=== PATIENT | male | born 1950 | race Caucasian/White ===

== ENCOUNTER → 2016-06-15 | Outpatient (CLI) | payer BC ==
--- NOTE | 2016-06-15 08:36 | XR ---
EXAMINATION TYPE: XR abdomen 1V DATE OF EXAM: 06/15/2016 8:19 AM COMPARISON: 07/22/2015 INDICATION: Urethral calculus TECHNIQUE: Single view abdomen supine view FINDINGS: There is a normal bowel gas pattern. Psoas margins are normal. No organomegaly is present. Previous distal right ureteral calculus is not identified on the current examination. IMPRESSION: 1. Unremarkable Abdomen
== END | disposition home or self-care (01) ==
LOC: RADXRMAIN 07:58
PROVIDERS: ATTEND Urology
DX: N20.1 Calculus of ureter (principal)
CPT/HCPCS: 74000

== ENCOUNTER 2016-07-12 07:04 | Day surgery (SDC) | payer BC ==
[2016-07-08 14:21] VITALS: BMI 29.7
[~2016-07-12 07:04] MED LIST: LACTATED RINGERS 1,000 ML IV SCH; LIDOCAINE 1% 20 ML VIAL (10MG/ML) FOR IV START INTRADERMA PRN
[2016-07-12 07:25] VITALS: TEMP 97.8
[2016-07-12] MEDS ORDERED: PROPOFOL 10 MG/ML 20 ML VIAL IV ONE (08:31)
[2016-07-12] MEDS ORDERED: LIDOCAINE 1% INJ 10MG/ML (20 ML MDV) ONE (08:31)
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
--- NOTE | 2016-07-12 09:10 | P.OP ---
Date of Procedure: 07/12/16 Preoperative Diagnosis: GERD GI bleed Postoperative Diagnosis: Antral gastritis Large hiatal hernia Esophagitis Diverticulosis External and internal hemorrhoids Colonic polyps of right colon and hepatic flexure Procedure(s) Performed: EGD Colonoscopy Anesthesia: MAC Surgeon: Renard Buchanan Pathology: other (Antrum, esophagus, colon polyps) Condition: stable Disposition: PACU Description of Procedure: The patient was placed on the endoscopy table in the lateral position. He received IV sedation. The gastroscope was then placed oropharynx and passed into the esophagus and into the stomach. Scope was then placed through the pylorus. The first and second portion of the duodenum appeared normal. The worst and second portion of the duodenum appeared normal. The scope was then brought back the antrum and this was mildly inflamed a biopsies was performed. The scope was then retroflexed and the remainder of the stomach appeared normal. The patient had a large hiatal hernia. The GE junction was at 37 cm. The distal esophagus showed evidence of a closely erosions and a biopsy was performed. The proximal esophagus appeared normal. The scope was then withdrawn for patient. Next digital rectal exam was performed which revealed external and internal hemorrhoids. The prostate was symmetric without nodules. The flexible colonoscope was then placed patient anus and passed throughout the entire colon. The ileocecal valve was visualized. The cecum appeared normal. In the right colon there was a polyp seen this removed with snare. At the hepatic flexure another polyp seen this removed with snare and forcep. Scope was then withdrawn and the transverse colon appeared normal. In the descending sigmoid colon there were scattered diverticuli. Scope was then brought back the rectum and this appeared normal. Scope was withdrawn for patient.
[2016-07-12 09:24] VITALS: BP 132/92; PULSE 69; RESP 18
== END 2016-07-12 09:56 | disposition home or self-care (01) ==
LOC: ORWHC2ENDO 07:04
PROVIDERS: ATTEND Surgery
DX: K29.50 Unspecified chronic gastritis without bleeding (principal); K20.0 Eosinophilic esophagitis; K44.9 Diaphragmatic hernia without obstruction or gangrene; D12.2 Benign neoplasm of ascending colon; D12.3 Benign neoplasm of transverse colon; K57.30 Diverticulosis of large intestine without perforation or abscess without bleeding; K64.4 Residual hemorrhoidal skin tags; K64.8 Other hemorrhoids; Z87.19 Personal history of other diseases of the digestive system; Z87.891 Personal history of nicotine dependence; E78.5 Hyperlipidemia, unspecified; I10 Essential (primary) hypertension; N40.0 Benign prostatic hyperplasia without lower urinary tract symptoms; Z87.442 Personal history of urinary calculi; Z79.899 Other long term (current) drug therapy
CPT/HCPCS: 88305; 88342; 45385; 43239; J2001; J2704

== ENCOUNTER 2016-07-19 06:08 | Inpatient (IN) | payer BC ==
[2016-07-16 08:27] VITALS: BMI 29.8
[~2016-07-19 06:08] MED LIST changes: +DEXAMETHASONE SOD PHOSPHATE 10 MG/ML 1 ML VIAL IV ONE; +HEPARIN SODIUM,PORCINE 5,000 UNIT/ML 1 ML VIAL SQ ONE; +HYDROmorphone 1 MG/ML 1 ML SYRINGE IVP PRN; -LACTATED RINGERS 1,000 ML IV SCH; -LIDOCAINE 1% 20 ML VIAL (10MG/ML) FOR IV START INTRADERMA PRN; +MIDAZOLAM 2 MG/2 ML VIAL IV PRN; +ONDANSETRON 4 MG/2 ML VIAL IVP ONE; +SCOPOLAMINE 1.5MG/72HR PATCH TRANSDERM ONE; +ceFAZolin 2 GM in SODIUM CHLORIDE 0.9% 100 ML IVPB ONE
[2016-07-19] MEDS ORDERED: LIDOCAINE 1% 20 ML VIAL (10MG/ML) FOR IV START INTRADERMA ONE (07:06)
[2016-07-19] MEDS: LACTATED RINGERS 1,000 ML IV SCH (07:07)
[2016-07-19] MEDS ORDERED: BUPIVACAIN-EPI 0.25%-1:200,000 30 ML VIAL SQ ONE ×5 (07:23→08:48)
--- NOTE | 2016-07-19 07:47 | P.GSHP ---
History of Present Illness H&P Date: 07/19/16 Chief Complaint: GERD The cystic 6-year-old male referred from Dr. Hodges.The patient has had long- standing problems with reflux esophagitis. The patient underwent recent EGD is found have evidence of esophagitis. Patient has been well informed on the procedure of laparoscopic Brittney fundoplication. The patient is aware the risk of the conversion to the open procedure, risk of injury to the stomach, liver and spleen. The patient is also a risk of recurrent GERD and dysphagia symptoms. The patient understands there is a postoperative diet of full liquids for 2 weeks after surgery. - Constitutional Constitutional: Reports as per HPI Past Medical History Past Medical History: GERD/Reflux, Hyperlipidemia, Hypertension, Prostate Disorder Additional Past Medical History / Comment(s): Hx INT HEMORRHOID. KIDNEY STONES, History of Any Multi-Drug Resistant Organisms: None Reported Past Surgical History: Cholecystectomy, Ear Surgery, Orthopedic Surgery Additional Past Surgical History / Comment(s): Lithotripsy 06-16-15. Splenectomy at age 12. ORIF OF RIGHT ANKLE/FIBULA-hardware out (3 SURGERIES). RT EAR SURG , HAD IMPLANT DONE 06/16/16. COLONOSCOPY. Past Anesthesia/Blood Transfusion Reactions: Motion Sickness, Postoperative Nausea & Vomiting (PONV) Past Psychological History: No Psychological Hx Reported Smoking Status: Former smoker Past Alcohol Use History: Rare Additional Past Alcohol Use History / Comment(s): QUIT IN 1981, SMOKED FOR 7 YRS. Past Drug Use History: None Reported - Past Family History Mother Family Medical History: Dementia Father Family Medical History: Cancer Additional Family Medical History / Comment(s): colon ca Medications and Allergies Home Medications Medication Instructions Recorded Confirmed Type Losartan [Cozaar] 50 mg PO QAM 10/05/14 07/19/16 History Simvastatin [Zocor] 40 mg PO QAM 10/05/14 07/19/16 History Tamsulosin [Flomax] 0.4 mg PO DAILY 07/01/15 07/19/16 History Tadalafil [Cialis] 5 mg PO ONCE PRN 07/08/16 07/19/16 History Allergies Allergy/AdvReac Type Severity Reaction Status Date / Time No Known Allergies Allergy Verified 07/12/16 07:14 Surgical - Exam Vital Signs Temp Pulse Resp BP Pulse Ox 97.5 F L 74 16 155/93 97 07/19/16 06:52 07/19/16 06:52 07/19/16 06:52 07/19/16 06:52 07/19/16 06:52 - General well developed, no distress - Eyes PERRL - ENT normal pinna - Neck no masses - Respiratory normal expansion - Cardiovascular Rhythm: regular - Abdomen Abdomen: soft, non tender Assessment and Plan Plan: GERD. We'll perform laparoscopic Brittney fundal plication.
[2016-07-19] MEDS ORDERED: KETOROLAC 30 MG/ML 1 ML VIAL ONE (07:55)
[2016-07-19] MEDS ORDERED: HYDROmorphone (PF) 1 MG/ML ONE (07:55)
[2016-07-19] MEDS ORDERED: SUCCINYLCHOLINE CHLORIDE 100 MG/5 ML SYR IV ONE (07:55)
[2016-07-19] MEDS ORDERED: ROCURONIUM BROMIDE 10 MG/ML 10 ML VIAL IV ONE (07:55)
[2016-07-19] MEDS ORDERED: GLYCOPYRROLATE 0.2 MG/ML 2 ML VIAL ONE (07:55)
[2016-07-19] MEDS ORDERED: ONDANSETRON 4 MG/2 ML VIAL ONE (07:55)
[2016-07-19] MEDS ORDERED: MIDAZOLAM 2 MG/2 ML VIAL ONE (07:55)
[2016-07-19] MEDS ORDERED: LIDOCAINE 1% INJ 10MG/ML (20 ML MDV) ONE (07:55)
[2016-07-19] MEDS ORDERED: PROPOFOL 10 MG/ML 20 ML VIAL IV ONE (07:55)
[2016-07-19] MEDS ORDERED: PHENYLEPHRINE-0.9% NACL SYG 1 MG/10 ML SYRINGE ONE (07:55)
[2016-07-19] MEDS ORDERED: fentaNYL (PF) 50 MCG/ML 2 ML AMP ONE (07:55)
[2016-07-19] MEDS ORDERED: NEOSTIGMINE 1 MG/ML 10 ML VIAL ONE (07:55)
[2016-07-19] MEDS ORDERED: LACTATED RINGERS 1,000 ML IV ONE ×4 (09:49→10:15)
[2016-07-19] MEDS ORDERED: ONDANSETRON 4 MG/2 ML VIAL IVP PRN (10:15)
[2016-07-19] MEDS ORDERED: HYDROmorphone 1 MG/ML 1 ML SYRINGE IVP PRN (10:15)
[2016-07-19] MEDS ORDERED: NALOXONE 0.4 MG/ML 1 ML VIAL IV PRN (10:15)
[2016-07-19] MEDS ORDERED: ACETAMINOPHEN TAB 325 MG TAB PO PRN (10:15)
[2016-07-19] MEDS ORDERED: HYDROcodone/APAP 5-325MG 1 EACH TAB PO PRN (10:15)
--- NOTE | 2016-07-19 10:15 | P.OP ---
Date of Procedure: 07/19/16 Preoperative Diagnosis: GERD Postoperative Diagnosis: GERD Adhesions Procedure(s) Performed: Laparoscopic Brittney fundoplication with mesh repair of hiatal hernia Laparoscopic lysis of adhesions Anesthesia: MAC Surgeon: Renard Buchanan Estimated Blood Loss (ml): 50 Pathology: none sent Condition: stable Disposition: PACU Description of Procedure: The patient's placed on the operative table in the supine position. He received general anesthesia. He was then placed in dorsal lithotomy position. His abdomen was prepped and draped in usual sterile fashion. The patient had a previous upper midline incision with a lateral extension. Using a 5 mm blade was trocar under direct visualization panel cavity was entered in the right lateral position. The laparoscope placed back internal cavity after adequate insufflation then the adhesions were noted along the midline. This point a another fibrillar trochars placed in the right upper quadrant and another 5 mm trocar was placed in the right lower quadrant. Approximately 30 minutes of operative time used to lyse adhesions on the midline. Once the adhesions were lysed. A fibrillar trocar is placed in the right epigastric, left epigastric and left umbilical area and then another fibrillar trocar was placed in the left lateral position. The left lateral lobe of the liver was retracted. And the hiatus was visualized. There was an obvious hiatal hernia. The patient had a previous splenectomy and there were adhesions along the greater curvature of the stomach. Using the Harmonic scissors to greater curvature stomach was dissected. Care was taken to identify and preserve the gastric wall. The hiatus was then dissected using the Harmonic scissors a 363 dissection of the hiatus was performed. The hiatal defect was then closed using 2-0 Ethibond. The repair was then buttressed with [employer] a mesh. This was held in with 2-0 Ethibond suture. The 58-Ugand[place] bougie dilators then placed patient oropharynx and passed in the stomach by the ADVISORY SOFTWARE ENGINEER. The fundoplication wrap was then performed. A 3 or 60 wrap was performed and secured with 2-0 Ethibond suture. At this point the abdomen was irrigated. There is no bleeding seen. The trochars and liver retractor withdrawn. The skin was closed interrupted 3-0 Monocryl suture. Dermabond dressings was applied. Patient was sent to recovery in stable condition.
[2016-07-19] MEDS: KETOROLAC 30 MG/ML 1 ML VIAL IVP SCH ×3 (12:31→23:13)
--- NOTE | 2016-07-19 14:24 | FL ---
EXAMINATION TYPE: FL UGI w esophagus DATE OF EXAM: 07/19/2016 1:35 PM COMPARISON: NONE HISTORY: Status post Brittney fundoplication Patient was given 50 cc of Omnipaque 350 by mouth. 1 minute 6 seconds fluoroscopy time. 5 images docu ment the procedure. At the level of the gastroesophageal junction, there is fundoplication change. There is narrowing of the contrast column. Moderate obstruction is seen. No extravasation. Tertiary esophageal contractions with reflux from the distal esophagus into the thoracic esophagus was noted during the exam. IMPRESSION: There is a moderate obstruction postoperatively as described. Entire contrast column does not clear into the stomach. Additional findings above.
[2016-07-19] MEDS: FAMOTIDINE 20 MG TAB PO SCH (21:22)
[2016-07-19] MEDS: DOCUSATE 100 MG CAP PO SCH (21:22)
[2016-07-20] MEDS: LACTATED RINGERS 1,000 ML IV SCH (04:55)
[2016-07-20] MEDS: KETOROLAC 30 MG/ML 1 ML VIAL IVP SCH ×2 (05:43→12:06)
[2016-07-20 07:38] VITALS: BP 125/70; PULSE 77; RESP 19; TEMP 97.3
[2016-07-20] MEDS: DOCUSATE 100 MG CAP PO SCH ×2 (07:55→08:24)
[2016-07-20] MEDS: FAMOTIDINE 20 MG TAB PO SCH (08:23)
[2016-07-20] MEDS ORDERED: TAMSULOSIN 0.4 MG CAP.ER.24H PO SCH (09:00)
[2016-07-20] MEDS ORDERED: LOSARTAN 50 MG TAB PO SCH (09:00)
[2016-07-20] MEDS ORDERED: ENOXAPARIN 40 MG/0.4 ML SYRINGE SQ SCH (09:00)
[2016-07-20] MEDS ORDERED: ATORVASTATIN 20 MG TAB PO SCH (09:00)
[2016-07-20 09:33] LABS: Basophils % (A) 0 %; CH 31.7; CHCM 33.5; Eosinophils # (A) 0.1 k/uL (0-0.7); Eosinophils % (A) 1 %; HCT 43.8 % (39.0-53.0); HDW 2.35; HGB 14.3 gm/dL (13.0-17.5); Luc # (Auto) 0.22; Luc % (Auto) 2; Lymphocytes # (A) 1.5 k/uL (1.0-4.8); Lymphocytes % (A) 14 %; MCH 31.1 pg (25.0-35.0); MCHC 32.7 g/dL (31.0-37.0); MCV 95.2 fL (80.0-100.0); Mean Platelet Volume 7.1; Monocytes # (A) 0.9 k/uL (0-1.0); Monocytes % (A) 9 %; Neutrophils # (A) 8.1 k/uL (1.3-7.7); Neutrophils % (A) 74 %; RDW 13.1 % (11.5-15.5); WBC 10.8 k/uL (3.8-10.6); WBC (Perox) 11.32
--- NOTE | 2016-07-20 11:28 | P.DS ---
Providers Date of admission: 07/19/16 06:08 Expected date of discharge: 07/20/16 Attending physician: Renard Buchanan Consults: 07/19/16 10:15 Consult Physician Routine Consulting Provider: Peter Hodges Reason/Comments: Medical management Do you want consulting provider notified?: Yes Primary care physician: Peter Hodges [facility] Course: Patient is a 66-year-old male, patient of Dr. Peter Hodges in the outpatient setting, with medical history significant for reflux esophagitis not responding to conservative treatment. Patient presented to the hospital for elective laparoscopic Brittney fundoplication. Patient underwent laparoscopic Brittney fundoplication with mesh repair of hiatal hernia and laparoscopic lysis of adhesions. Patient tolerated procedure well. Upper GI/barium swallow x-ray post Lucho fundoplication with moderate obstruction. No evidence of leak. No evidence of dysphagia, nausea, vomiting. Patient tolerating a clear liquid diet. Patient was deemed stable for discharge to home with close follow-up in the outpatient setting. Discharge diagnoses: GERD status post laparoscopic Brittney fundoplication. Adhesions status post laparoscopic lysis of adhesions. The above impression and plan have been discussed and directed by Dr. Buchanan. Enrique GONG acting as scribe for Dr. Buchanan. Pertinent Studies: Upper GI/barium swallow x-ray Procedures: Laparoscopic Brittney fundoplication with mesh repair of hiatal hernia; Laparoscopic lysis of adhesions Patient Condition at Discharge: Good Plan - Discharge Summary New Discharge Prescriptions: Docusate [Colace] 100 mg PO BID #20 capsule HYDROcodone/APAP 7.5-325MG [[place] 7.5-325] 1 tab PO Q6HR PRN #28 tab PRN Reason: Pain Discharge Medication List Losartan [Cozaar] 50 mg PO QAM 10/05/14 [History] Simvastatin [Zocor] 40 mg PO QAM 10/05/14 [History] Tamsulosin [Flomax] 0.4 mg PO DAILY 07/01/15 [History] Tadalafil [Cialis] 5 mg PO ONCE PRN 07/08/16 [History] Docusate [Colace] 100 mg PO BID #20 capsule 07/19/16 [Rx] HYDROcodone/APAP 7.5-325MG [[place] 7.5-325] 1 tab PO Q6HR PRN #28 tab 07/19/16 [ Rx] Follow up Appointment(s)/Referral(s): Peter Hodges DO [Primary Care Provider] - 07/27/16 11:30 am Renard Buchanan MD [STAFF PHYSICIAN] - 08/03/16 2:40 pm Patient Instructions/Handouts: *Surgery [facility] - ([facility]) Lap Brittney Fundiplication Post-Op Instructions Activity/Diet/Wound Care/Special Instructions: No heavy lifting, pushing, or pulling items greater than 10 pounds. Full liquid diet for 2 weeks. No caffeinated beverages or straws. Shower daily, no soaking in bath tubs, pools, or hot tubs. No driving while taking pain medication. Notify surgeon with any signs or symptoms of infection, increased pain, or not tolerating diet. Discharge Disposition: HOME SELF-CARE
--- NOTE | 2016-07-20 13:05 | P.CONS ---
History of Present Illness - Reason for Consult Consult date: 07/19/16 medical management Requesting physician: Renard Buchanan - Chief Complaint GERD - History of Present Illness patient is 66-year-old male, patient of Dr.Gary Hodges in the outpatient setting, with medical history significant for severe reflux esophagitis not responding to medical management; hyperlipidemia, and hypertension. Patient presented to the hospital for elective laparoscopic Brittney fundoplication by Dr. Buchanan on 07/19/2016. Patient tolerated procedure well. Upon exam, patient is postop day #1. Patient is doing well. Denies dysphagia, chills, fevers, nausea, vomiting, shortness of breath, chest pain, leg swelling or leg pain. Patient is tolerating a clear liquid diet. Patient has been up ambulating. Patient is urinating without difficulty. Patient is passing flatus without bowel movement. Incisional pain controlled. Afebrile. Hemodynamically stable. Past Medical History Past Medical History: GERD/Reflux, Hyperlipidemia, Hypertension, Prostate Disorder Additional Past Medical History / Comment(s): Hx INT HEMORRHOID. KIDNEY STONES, History of Any Multi-Drug Resistant Organisms: None Reported Past Surgical History: Cholecystectomy, Ear Surgery, Orthopedic Surgery Additional Past Surgical History / Comment(s): Lithotripsy 06-16-15. Splenectomy at age 12. ORIF OF RIGHT ANKLE/FIBULA-hardware out (3 SURGERIES). RT EAR SURG , HAD IMPLANT DONE 06/16/16. COLONOSCOPY. Past Anesthesia/Blood Transfusion Reactions: Motion Sickness, Postoperative Nausea & Vomiting (PONV) Past Psychological History: No Psychological Hx Reported Smoking Status: Former smoker Past Alcohol Use History: Rare Additional Past Alcohol Use History / Comment(s): QUIT IN 1981, SMOKED FOR 7 YRS. Past Drug Use History: None Reported - Past Family History Mother Family Medical History: Dementia Father Family Medical History: Cancer Additional Family Medical History / Comment(s): colon ca Medications and Allergies Home Medications Medication Instructions Recorded Confirmed Type Losartan [Cozaar] 50 mg PO QAM 10/05/14 07/19/16 History Simvastatin [Zocor] 40 mg PO QAM 10/05/14 07/19/16 History Tamsulosin [Flomax] 0.4 mg PO DAILY 07/01/15 07/19/16 History Tadalafil [Cialis] 5 mg PO ONCE PRN 07/08/16 07/19/16 History Allergies Allergy/AdvReac Type Severity Reaction Status Date / Time No Known Allergies Allergy Verified 07/12/16 07:14 Physical Exam Vitals: Vital Signs Temp Pulse Resp BP Pulse Ox 07/20/16 07:00 97.3 F L 77 19 125/70 93 L 07/19/16 22:41 97.5 F L 79 16 139/88 94 L 07/19/16 14:47 96.6 F L 72 18 139/94 92 L Intake and Output 07/19/16 07/20/16 07/20/16 22:59 06:59 14:59 Other: # Voids 2 2 GENERAL: Pt awake and alert, well-appearing, well-nourished, and in no acute distress. HEAD: Atraumatic, normocephalic. EYES: Pupils equal, round, and reactive to light, extraocular movements intact, sclera anicteric, conjunctiva are normal. ENT: Moist mucous membranes. Tongue smooth, pink, no lesions, protrudes in midline. NECK:Supple without lymphadenopathy or JVD. LUNGS: Breath sounds clear to auscultation bilaterally. No wheezes, rales, or rhonchi. HEART: Heart S1, S2, no S3 or S4. Regular rate and rhythm.No murmurs, rubs or gallops. ABDOMEN: Soft, nontender, nondistended, normoactive bowel sounds. No guarding, no rebound. No masses or organomegaly appreciated. Incisions dry and intact. EXTREMITIES: 2+ peripheral pulses. No edema. No calf tenderness. NEUROLOGICAL: Pt oriented x 3. No focal deficits noted. Strength and sensation grossly intact. PSYCH: Normal mood, normal affect. SKIN: Warm, dry. Results CBC & Chem 7: 07/20/16 08:45 Labs: Abnormal Lab Results - Last 24 Hours (Table) 07/20/16 Range/Units 08:45 WBC 10.8 H (3.8-10.6) k/uL Neutrophils # 8.1 H (1.3-7.7) k/uL Assessment and Plan Plan: Impression: 1. GERD status post laparoscopic Lucho fundoplication on 07/19/2016. 2. Adhesions status post laparoscopic lysis of adhesions on 07/19/2016. 3. Hyperlipidemia. 4. Hypertension. 5. History of BPH. 6. History of nicotine dependence. Plan: Continue surgical management by surgical service. Home medications and been reviewed and resumed. From a medical standpoint, patient is stable for discharge when cleared by surgery. Patient will follow-up with Dr. Hodges in a week after discharge. The above impression and plan have been discussed and directed by Dr. Hodges. Enrique GONG acting as scribe for Dr. Hodges.
== END 2016-07-20 14:52 | disposition home or self-care (01) | DRG 328 ==
LOC: 2ORWHC 06:08 → 4MS4W 10:14
PROVIDERS: ADMIT Surgery; ATTEND Surgery
PROC: 0BUR4JZ (ICD-10-PCS; 2016-07-19)
PROC: 0BUS4JZ (ICD-10-PCS; 2016-07-19)
PROC: 0DV44ZZ Restriction of Esophagogastric Junction, Percutaneous Endoscopic Approach (ICD-10-PCS; principal; 2016-07-19 07:40)
DX: K21.0 Gastro-esophageal reflux disease with esophagitis (principal); I10 Essential (primary) hypertension; E78.5 Hyperlipidemia, unspecified; K44.9 Diaphragmatic hernia without obstruction or gangrene; N40.0 Benign prostatic hyperplasia without lower urinary tract symptoms; Z79.899 Other long term (current) drug therapy; Z87.891 Personal history of nicotine dependence
CPT/HCPCS: 74240; 85025

== ENCOUNTER → 2018-08-28 | Outpatient (CLI) | payer BC ==
--- NOTE | 2018-08-28 16:34 | US ---
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 Assess left supraclavicular palpable which patient has had x many yea rs. Left lateral inferior neck scanned: subtle oval hypoechoic solid mass noted at palpable = 4.3 x 3.0 x 1.4cm. Technologist identifies slightly lobulated slightly hypoechoic oval lesion at site of palpable abnorm ality not normal or abnormal appearing lymph node. This can BE further evaluated and characterized wi contrast-enhanced CT or MRI if desired. IMPRESSION: As above.
== END | disposition home or self-care (01) ==
LOC: RADUSWWP 15:20
PROVIDERS: ATTEND Surgery
DX: D17.1 Benign lipomatous neoplasm of skin and subcutaneous tissue of trunk (principal)
CPT/HCPCS: 76536

== ENCOUNTER → 2019-08-28 | Outpatient (CLI) | payer BC ==
[2019-08-28 11:53] LABS: HCT 47.9 % (39.0-53.0); HGB 16.3 gm/dL (13.0-17.5); MCH 32.5 pg (25.0-35.0); MCV 95.7 fL (80.0-100.0); Mean Platelet Volume 7.9; Platelet Count 242 k/uL (150-450); RBC 5.01 m/uL (4.30-5.90); RDW 13.1 % (11.5-15.5)
== END | disposition home or self-care (01) ==
LOC: LABWHC1 10:03
PROVIDERS: ATTEND Surgery
DX: K40.20 Bilateral inguinal hernia, without obstruction or gangrene, not specified as recurrent (principal)
CPT/HCPCS: 36415; 85027

== ENCOUNTER 2019-09-19 07:10 | Day surgery (SDC) | payer BC ==
[2019-09-13 12:03] VITALS: BMI 29.0
[~2019-09-19 07:10] MED LIST changes: +ACETAMINOPHEN TAB 500 MG TAB PO ONE; +HYDROmorphone 0.5 MG/0.5 ML SYRINGE IVP PRN; -HYDROmorphone 1 MG/ML 1 ML SYRINGE IVP PRN; +LACTATED RINGERS 1,000 ML IV SCH; +LIDOCAINE 1% (10MG/ML) FOR IV START INTRADERMA PRN; -SCOPOLAMINE 1.5MG/72HR PATCH TRANSDERM ONE; -ceFAZolin 2 GM in SODIUM CHLORIDE 0.9% 100 ML IVPB ONE; +fentaNYL (PF) 50 MCG/ML 2 ML AMP IVP PRN
[2019-09-19] MEDS ORDERED: LACTATED RINGERS 1,000 ML IV ONE (07:51)
[2019-09-19] MEDS ORDERED: HEPARIN SODIUM,PORCINE 5,000 UNIT/ML 1 ML VIAL ONE (07:53)
[2019-09-19] MEDS ORDERED: ACETAMINOPHEN TAB 500 MG TAB ONE (07:53)
[2019-09-19] MEDS ORDERED: ONDANSETRON 4 MG/2 ML VIAL ONE (07:53)
[2019-09-19] MEDS ORDERED: ONDANSETRON 4 MG/2 ML VIAL IVP ONE (07:56)
[2019-09-19] MEDS ORDERED: LIDOCAINE 1% (10MG/ML) FOR IV START INTRADERMA ONE (07:57)
[2019-09-19] MEDS ORDERED: PROPOFOL 10 MG/ML 20 ML VIAL IV ONE (09:43)
[2019-09-19] MEDS ORDERED: ROCURONIUM BROMIDE 10 MG/ML 5 ML VIAL IV ONE (09:43)
[2019-09-19] MEDS ORDERED: ePHEDrine SULFATE/0.9% NACL/PF 50 MG/5 ML SYRINGE IV ONE (09:43)
[2019-09-19] MEDS ORDERED: MIDAZOLAM 2 MG/2 ML VIAL ONE (09:43)
[2019-09-19] MEDS ORDERED: KETOROLAC 30 MG/ML 1 ML VIAL ONE (09:43)
[2019-09-19] MEDS ORDERED: NEOSTIGMINE 1 MG/ML 10 ML VIAL ONE (09:43)
[2019-09-19] MEDS ORDERED: SUCCINYLCHOLINE CHLORIDE 100 MG/5 ML SYR IV ONE (09:43)
[2019-09-19] MEDS ORDERED: fentaNYL (PF) 50 MCG/ML 2 ML AMP ONE (09:43)
[2019-09-19] MEDS ORDERED: GLYCOPYRROLATE 0.2 MG/ML 2 ML VIAL ONE (09:43)
[2019-09-19] MEDS ORDERED: LIDOCAINE 1% INJ 10MG/ML (20 ML MDV) ONE (09:43)
--- NOTE | 2019-09-19 09:43 | P.GSHP ---
History of Present Illness H&P Date: 09/19/19 Chief Complaint: Bilateral inguinal hernias This a 69-year-old male who presents today for laparoscopic robotic-assisted repair of. Bilateral hernias. Past Medical History Past Medical History: Hyperlipidemia, Hypertension Additional Past Medical History / Comment(s): nivia inguinal hernia, Hx INT HEMORRHOID. KIDNEY STONES, History of Any Multi-Drug Resistant Organisms: None Reported Past Surgical History: Cholecystectomy, Ear Surgery, Orthopedic Surgery Additional Past Surgical History / Comment(s): hiatal hernia repair, Lithotripsy 06-16-15. Splenectomy at age 12. ORIF OF RIGHT ANKLE/FIBULA-hardware out (3 SURGERIES). RT EAR SURG, HAD IMPLANT DONE 06/16/16. COLONOSCOPY. Past Anesthesia/Blood Transfusion Reactions: Motion Sickness, Postoperative Nausea & Vomiting (PONV) Smoking Status: Former smoker - Past Family History Mother Family Medical History: Dementia Father Family Medical History: Cancer Additional Family Medical History / Comment(s): colon ca Medications and Allergies Home Medications Medication Instructions Recorded Confirmed Type Losartan [Cozaar] 50 mg PO QAM 10/05/14 09/13/19 History Simvastatin [Zocor] 40 mg PO QAM 10/05/14 09/13/19 History Tamsulosin [Flomax] 0.4 mg PO DAILY 07/01/15 09/13/19 History Allergies Allergy/AdvReac Type Severity Reaction Status Date / Time No Known Allergies Allergy Verified 09/19/19 07:35 Surgical - Exam Vital Signs Temp Pulse Resp BP Pulse Ox 96.3 F L 75 16 129/86 93 L 09/19/19 07:47 09/19/19 07:47 09/19/19 07:47 09/19/19 07:47 09/19/19 07:47 - General well developed, well nourished, no distress - Eyes PERRL - ENT normal pinna - Neck no masses - Respiratory normal expansion - Cardiovascular Rhythm: regular - Abdomen Abdomen: soft, non tender Hernia: inguinal (Bilateral inguinal hernia) Assessment and Plan Assessment: Bilateral hernia. We'll perform laparoscopic robotic system repair.
[2019-09-19] MEDS ORDERED: HYDROcodone/APAP 5-325MG 1 EACH TAB ONE (12:31)
--- NOTE | 2019-09-19 12:43 | P.OP ---
Date of Procedure: 09/19/19 Preoperative Diagnosis: Bilateral inguinal hernia Postoperative Diagnosis: Bilateral inguinal hernia Procedure(s) Performed: Laparoscopic robotic-assisted repair of bilateral inguinal hernia Excision of bilateral cord lipoma Anesthesia: MATT Surgeon: Renard Buchanan Estimated Blood Loss (ml): 5 Pathology: other (Cord lipoma) Condition: stable Disposition: PACU Description of Procedure: RobThe patient's placed on the operating table in the supine position. The patient received general anesthesia. The patient's abdomen was prepped and draped in usual sterile fashion. The skin was anesthetized 1% local Xylocaine at the incision sites. Using an 11 blade a skin incision was made at the umbilicus. The fascia was grasped with a [place] and then the peritoneal cavity was entered with the Veress needle. Position of the Veress needle was confirmed with a positive drop test. After adequate insufflation a 5 mm trocar was placed into the peritoneal cavity. The Laparoscope was placed the peritoneal cavity. And a robotic 8 mm trocar was placed in the right lateral position and then another 8 mm robotic trochars placed in the left lateral position. The original 5 mm trocar was exchanged for a 12 mm trocar. The patient was placed in reverse Trendelenburg and then the patient was docked to the robot. Next the peritoneum over top of the right hernia was incised and then using blunt and sharp dissection and electrocautery the hernia sac was dissected free from the floor of the inguinal canal. The hernia sac was completely reduced into the peritoneal cavity. The cord lipoma was dissected and sent to pathology. And then using the Pro personal financial advisor mesh the hernia was repaired. The peritoneum was then sutured with 20V lock suture. Next the peritoneum over top left of the hernia was incised and then using blunt and sharp dissection and electrocautery the hernia sac was dissected free from the floor of the inguinal canal. The hernia sac was completely reduced into the peritoneal cavity. The cord lipoma was dissected and sent to pathology. And then using the Pro personal financial advisor mesh the hernia was repaired. The peritoneum was then sutured with 20V lock suture. The patient was then undocked the robot. The needle was withdrawn from the peritoneal cavity. The umbilical trocar site was closed with 0 Ethibond suture. The skin was closed interrupted 3-0 Monocryl suture. Dermabond dressing was applied. Patient was sent to recovery in stable condition.
[2019-09-19] MEDS ORDERED: BUPIVACAIN-EPI 0.25%-1:200,000 30 ML VIAL SQ ONE (12:45)
[2019-09-19] MEDS ORDERED: HYDROcodone/APAP 5-325MG 1 EACH TAB PO ONE (12:50)
[2019-09-21 09:17] VITALS: BP 120/73; PULSE 82; RESP 16; TEMP 96.3
== END 2019-09-19 13:40 | disposition home or self-care (01) ==
LOC: OR 07:10
PROVIDERS: ATTEND Surgery
DX: K40.20 Bilateral inguinal hernia, without obstruction or gangrene, not specified as recurrent (principal); D17.6 Benign lipomatous neoplasm of spermatic cord; I10 Essential (primary) hypertension; E78.5 Hyperlipidemia, unspecified; N40.0 Benign prostatic hyperplasia without lower urinary tract symptoms; Z79.899 Other long term (current) drug therapy; Z87.442 Personal history of urinary calculi; Z90.49 Acquired absence of other specified parts of digestive tract; Z98.890 Other specified postprocedural states; Z90.81 Acquired absence of spleen; Z87.891 Personal history of nicotine dependence; Z80.0 Family history of malignant neoplasm of digestive organs; Z81.8 Family history of other mental and behavioral disorders; Z87.19 Personal history of other diseases of the digestive system
CPT/HCPCS: 88304; 49650; C1781; J2250; J1644; J2710; J0690; J2405; J2001; J3010; J1885; J0330; J2704

== ENCOUNTER → 2020-06-20 | Outpatient (CLI) | payer MEDICARE, OTHER ==
--- NOTE | 2020-06-20 16:05 | CT ---
EXAMINATION TYPE: CT abdomen pelvis wo con DATE OF EXAM: 06/20/2020 COMPARISON: 06/11/2015 INDICATION: right flank pain DLP: 708.5 mGycm, Automated exposure control for dose reduction was used. CONTRAST: 0 mL of Isovue 300. Study performed without Oral Contrast TECHNIQUE: Axial images were obtained from above the diaphragm to the pubic rami in the axial plane a t 5 mm thick sections. Reconstructed images are reviewed on the computer in the coronal plane. FINDINGS: Limited CT sections are obtained the lung bases. The lung bases are clear. Coronary artery calcific ation is present. There is a small hiatal hernia present. CT ABDOMEN: Liver: Hepatic cyst is present Spleen: There may be a prior splenectomy. Splenule is likely present with some calcification. Pancreas: Normal Adrenal glands: The adrenal glands are normal. Gallbladder: Not identified Kidneys: No masses are evident. No hydronephrosis is present. Cortical renal cyst is present on the right kidney measuring 3.5 cm and 0 Hounsfield units. No renal stones identified. Previous renal st one is not evident. No hydroureter is evident. Aorta: Vascular calcification is within the aorta. Inferior vena cava: Normal. CT PELVIS: Loops of bowel within the abdomen and pelvis are normal. This study is performed without oral con trast limiting bowel evaluation Appendix: Normal as visualized. Urinary bladder: Normal. No urinary bladder stones are identified. Genitourinary structures: Prostate is prominent. Osseous structures: No suspicious lytic or sclerotic lesions. IMPRESSIONS: 1. No suspicious renal stones or abnormal appendix to account for right flank pain. 2. Renal cysts. 3. Hepatic cyst
== END | disposition home or self-care (01) ==
LOC: RADCTMAIN 15:03
PROVIDERS: ATTEND Urology
DX: N28.1 Cyst of kidney, acquired (principal); K76.89 Other specified diseases of liver
CPT/HCPCS: 74176

== ENCOUNTER → 2020-06-20 | Outpatient (CLI) | payer MEDICARE, OTHER ==
--- NOTE | 2020-06-20 14:46 | XR ---
EXAMINATION TYPE: XR KUB DATE OF EXAM: 06/20/2020 Comparison: 06/15/2016 Clinical History: 70-year-old male N20.1, ureteral calculus. Findings: Nonobstructive bowel gas pattern. Supine imaging limited for assessment of free air. Scattered mild s tool. Bowel content largely obscures the right renal shadow. Some scattered vascular calcifications i n the pelvis. Impression: No definite suspicious calcification is radiographically apparent. Bowel content largely obscures the right renal shadow. Nonobstructive bowel gas pattern.
== END | disposition home or self-care (01) ==
LOC: RADXRMAIN 09:41
PROVIDERS: ATTEND Urology
DX: N20.1 Calculus of ureter (principal)
CPT/HCPCS: 74018

== ENCOUNTER 2021-01-27 12:22 | Emergency (ER) | payer MEDICARE, OTHER ==
[2021-01-27] MEDS ORDERED: IBUPROFEN 800 MG TAB PO STA (15:19)
[2021-01-27] MEDS ORDERED: methylPREDNISolone SOD SUCCI 125 MG/2 ML VIAL IM ONE (15:19)
[2021-01-27] MEDS ORDERED: ORPHENADRINE 30 MG/ML 2 ML VIAL IM STA (15:19)
--- NOTE | 2021-01-27 16:19 | XR ---
EXAM TYPE: LUMBAR SPINE X RAY SERIES COMPARISON: NONE HISTORY: Pain TECHNIQUE: 3 views are submitted. FINDINGS: Alignment is anatomic. The pedicles are intact. The transverse processes are intact. There is mini mal anterolisthesis L4 on L5. There is diffuse osteopenia with multilevel severe degenerative disc d isease and facet arthropathy. Vascular calcifications noted. IMPRESSION: 1. Severe multilevel degenerative disc disease and facet arthropathy..
--- NOTE | 2021-01-27 16:35 | ED ---
Back Pain HPI - General Chief Complaint: Back Pain/Injury Stated Complaint: lower back pain Time Seen by Provider: 01/27/21 15:01 Source: patient, RN notes reviewed Limitations: no limitations - History of Present Illness Initial Comments: Patient is a 70-year-old male that presents to the emergency department complaining of left mid to lower back pain. He notes this is been going on since Tuesday. He notes that he did drive to [place] and back over the weekend. He notes he does have a history of chronic low back pain with severe arthritis. He notes that standing up is fine. He denied any saddle anesthesia, bladder or bowel incontinence/retention. He denied any numbness weakness or tingling. He was otherwise well-appearing. He denied chest pain shortness of breath headache nausea vomiting diarrhea constipation fever fatigue chills. - Related Data Home Medications Medication Instructions Recorded Confirmed Losartan [Cozaar] 50 mg PO QAM 10/05/14 09/13/19 Simvastatin [Zocor] 40 mg PO QAM 10/05/14 09/13/19 Tamsulosin [Flomax] 0.4 mg PO DAILY 07/01/15 09/13/19 Allergies Allergy/AdvReac Type Severity Reaction Status Date / Time No Known Allergies Allergy Verified 01/27/21 12:55 Review of Systems ROS Statement: Those systems with pertinent positive or pertinent negative responses have been documented in the HPI. ROS Other: All systems not noted in ROS Statement are negative. Past Medical History Past Medical History: GERD/Reflux, Hyperlipidemia, Hypertension, Prostate Disorder Additional Past Medical History / Comment(s): Hx INT HEMORRHOID. KIDNEY STONES, History of Any Multi-Drug Resistant Organisms: None Reported Past Surgical History: Cholecystectomy, Ear Surgery, Orthopedic Surgery Additional Past Surgical History / Comment(s): Lithotripsy 06-16-15. Splenectomy at age 12. ORIF OF RIGHT ANKLE/FIBULA-hardware out (3 SURGERIES). RT EAR SURG, HAD IMPLANT DONE 06/16/16. COLONOSCOPY. Past Anesthesia/Blood Transfusion Reactions: Motion Sickness, Postoperative Nausea & Vomiting (PONV) Past Psychological History: No Psychological Hx Reported Smoking Status: Never smoker Past Alcohol Use History: Rare Past Drug Use History: None Reported - Past Family History Mother Family Medical History: Dementia Father Family Medical History: Cancer Additional Family Medical History / Comment(s): colon ca General Exam Limitations: no limitations General appearance: alert, in no apparent distress Head exam: Present: atraumatic, normocephalic, normal inspection Eye exam: Present: normal appearance, PERRL, EOMI. Absent: scleral icterus, conjunctival injection, periorbital swelling ENT exam: Present: normal exam, mucous membranes moist Neck exam: Present: normal inspection Respiratory exam: Present: normal lung sounds bilaterally. Absent: respiratory distress, wheezes, rales, rhonchi, stridor Cardiovascular Exam: Present: regular rate, normal rhythm, normal heart sounds. Absent: systolic murmur, diastolic murmur, rubs, gallop, clicks Extremities exam: Present: normal inspection, full ROM, normal capillary refill. Absent: tenderness, pedal edema, joint swelling, calf tenderness Back exam: Present: normal inspection, paraspinal tenderness (Left mid lower back) Neurological exam: Present: alert, oriented X3 Psychiatric exam: Present: normal affect, normal mood Skin exam: Present: warm, dry, intact, normal color. Absent: rash Course Vital Signs 01/27/21 12:50 Temperature 97.7 F Pulse Rate 76 Respiratory 18 Rate Blood Pressure 151/87 O2 Sat by Pulse 95 Oximetry Medical Decision Making - Medical Decision Making 70-year-old male complaining of left lower back pain after driving to and from [place] over the weekend. Lumbar spine x-ray, 125 mg of Solu-Medrol, 40 mg and Norflex, 800 mg of Motrin ordered. X-ray negative for any acute fractures or dislocations, but show severe degenerative disc disease and facet arthropathy. Patient is agreeable discharge home with follow-up to primary care for muscle spasms and mechanical back pain. Case discussed with Dr. Evans, patient can discharge home. - Radiology Data Radiology results: report reviewed, image reviewed Lumbar spine x-ray: Severe multilevel degenerative disc disease and facet arthropathy. Disposition Clinical Impression: Mechanical back pain, Strain of lumbar region Disposition: HOME SELF-CARE Condition: Stable Instructions (If sedation given, give patient instructions): Acute Low Back Pain (ED) Additional Instructions: Please return to the Emergency Department if symptoms worsen or any other concerns. Follow-up with primary care 1-2 days. Avoid any strenuous activity or exercise. Take pain medications as prescribed. Is patient prescribed a controlled substance at d/c from ED?: No Referrals: Peter Hodges, [Primary Care Provider] - 1-2 days Time of Disposition: 16:34
[2021-01-27 17:10] VITALS: BP 148/86; PULSE 74; RESP 16; TEMP 98.2
== END 2021-01-27 17:08 | disposition home or self-care (01) ==
LOC: EC 12:22
DX: S39.012A Strain of muscle, fascia and tendon of lower back, initial encounter (principal); I10 Essential (primary) hypertension; K21.9 Gastro-esophageal reflux disease without esophagitis; E78.5 Hyperlipidemia, unspecified; Z87.442 Personal history of urinary calculi; Z90.49 Acquired absence of other specified parts of digestive tract; Z87.19 Personal history of other diseases of the digestive system; X58.XXXA Exposure to other specified factors, initial encounter
CPT/HCPCS: 99283; 96372 ×2; 72100; J2360; J2930

== ENCOUNTER → 2021-02-18 | Outpatient (CLI) | payer MEDICARE, OTHER | END | disposition home or self-care (01) | LOC: LABWHC1 12:17 | PROVIDERS: ATTEND Family Medicine | DX: U07.1 COVID-19 (principal) | CPT/HCPCS: U0003; C9803 ==

== ENCOUNTER → 2022-03-18 | Outpatient (CLI) | payer MEDICARE, OTHER ==
--- NOTE | 2022-03-18 15:11 | CT ---
EXAMINATION TYPE: CT abdomen pelvis wo con CT DLP: 816.8 mGycm, Automated exposure control for dose reduction was used. DATE OF EXAM: 03/18/2022 2:54 PM COMPARISON: CT abdomen pelvis most recent from 06/20/2020, 06/11/2015 . CLINICAL INDICATION:Male, 71 years old with history of N20.2 CALCULUS OF KIDNEY WITH CALCULUS OF URET ER; right sided groin pain. hx of kidney stones TECHNIQUE: Standard CT of the abdomen and pelvis without IV or oral contrast. Lack of IV or oral co ntrast limits evaluation of solid and hollow organ viscera. Coronal and sagittal reformats were perfo rmed. FINDINGS: LOWER CHEST: The lungs are clear. Coronary arterial calcifications. ABDOMEN LIVER: Stable right hepatic lobe cyst measuring 2.5 cm. GALLBLADDER AND BILE DUCTS: The gallbladder is surgically absent. No biliary ductal dilatation. PANCREAS: Unremarkable noncontrast appearance. SPLEEN: Multiple splenules demonstrated within the splenectomy bed ADRENAL GLANDS: Unremarkable noncontrast appearance.. KIDNEYS AND URETERS: No evidence of hydronephrosis or renal calculus. Stable right renal cyst. Stable right renal cortical calcification. PELVIS BLADDER: Unremarkable REPRODUCTIVE: Bilateral hydroceles with left greater than right. ABDOMEN & PELVIS STOMACH AND BOWEL: Stomach and duodenum are unremarkable. Scattered colonic diverticulosis without ev idence for acute diverticulitis. No evidence of bowel obstruction. PERITONEUM: No evidence of pneumoperitoneum or free fluid. Stable nodules within the pelvis measuring up to 2.5 cm. Additional subcentimeter nodules demonstrated within the splenectomy bed and throughou t the abdomen. These likely represent splenules. VASCULATURE: Mild atherosclerotic calcifications are present throughout the abdominal aorta and its b ranches. No evidence of aortic aneurysm. MUSCULOSKELETAL: No acute osseous abnormalities. Mild disc degeneration changes are present throughou t the thoracolumbar spine. LYMPH NODES: No gross evidence for lymphadenopathy. SOFT TISSUE/ABDOMINAL WALL: Small fat filled umbilical hernia. Post surgical changes from bilateral i nguinal hernia repair. IMPRESSION: 1. No evidence for obstructive uropathy. 2. Bilateral hydroceles with left greater than right. 3. Colonic diverticulosis without evidence for acute diverticulitis. 4. 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
== END | disposition home or self-care (01) ==
LOC: RADCTMAIN 14:21
PROVIDERS: ATTEND Family Medicine
DX: N43.3 Hydrocele, unspecified (principal); K57.30 Diverticulosis of large intestine without perforation or abscess without bleeding; K31.89 Other diseases of stomach and duodenum; Z87.442 Personal history of urinary calculi
CPT/HCPCS: 74176